=== PATIENT | female | born 1950 | race Caucasian/White ===

== ENCOUNTER 2021-12-18 16:06 | Outpatient (CLI) | payer MEDICARE, SELFPAY ==
[2021-12-18 11:36] LABS: Cholesterol* 201 mg/dL (90-199)
[2021-12-18 11:37] LABS: HDL Cholesterol* 59 mg/dL (>=50); LDL Cholesterol Calculated 103 mg/dL (<100); Triglycerides* 197 mg/dL (40-149)
== END 2021-12-18 16:07 | disposition home or self-care (01) ==
PROVIDERS: PCP Internal Medicine; Visit Provider Internal Medicine
DX: E78.5 Hyperlipidemia, unspecified (principal)
CPT/HCPCS: 80061

== ENCOUNTER 2022-05-02 09:03 | Outpatient (CLI) | payer MEDICARE, OTHER, SELFPAY ==
[2022-05-02 12:54] LABS: Cholesterol* 192 mg/dL (90-199); HDL Cholesterol* 64 mg/dL (>=50); LDL Cholesterol Calculated 94 mg/dL (<100); Triglycerides* 170 mg/dL (40-149)
== END 2022-05-02 09:04 | disposition home or self-care (01) ==
LOC: NFLDREF 09:20
PROVIDERS: PCP Internal Medicine; Visit Provider Internal Medicine
DX: E03.9 Hypothyroidism, unspecified (principal); E78.5 Hyperlipidemia, unspecified
CPT/HCPCS: 80061; 84443

== ENCOUNTER 2022-05-21 13:44 | Outpatient (CLI) | payer MEDICARE, OTHER, SELFPAY ==
--- NOTE | 2022-05-21 13:40 | CRLHL7_ITS ---
For Patients: As a result of the Century Cures Act, medical imaging exams and procedure reports are released immediately into your electronic medical record. You may view this report before your referring provider. If you have questions, please contact your health care provider. BILATERAL SCREENING MAMMOGRAM WITH COMPUTER-AIDED DETECTION AND TOMOSYNTHESIS TECHNIQUE: CC and MLO views were obtained. These mammographic images have been obtained using full-field digital technique. These mammographic images were interpreted with the benefit of computer-aided detection. Breast Tomosynthesis was used in this interpretation. COMPARISON FILM: 05/31/20; 04/01/19; 08/15/17. FINDINGS: The breasts are heterogeneously dense, which may obscure small masses IMPRESSION: There is no radiographic evidence for malignancy. ASSESSMENT: BI-RADS Category 2: Benign RECOMMENDATION: Routine screening mammogram in 1 year. A lay language report of this examination will be provided to the patient. Evan Jon M.D. Diagnostic Radiologist [email or web address] Transcribed: 2:40 pm DW/Dictated by: Evan Jon MD @ 05/22/2022 12:55:00 PM (Electronically Signed)
== END 2022-05-21 13:45 | disposition home or self-care (01) ==
PROVIDERS: PCP Internal Medicine; Visit Provider Internal Medicine
DX: Z12.31 Encounter for screening mammogram for malignant neoplasm of breast (principal); R92.2 Inconclusive mammogram
CPT/HCPCS: 77063; 77067

== ENCOUNTER 2022-05-23 13:26 | Outpatient (CLI) | payer MEDICARE, OTHER, SELFPAY ==
--- NOTE | 2022-05-23 13:30 | CRLHL7_ITS ---
For Patients: As a result of the Century Cures Act, medical imaging exams and procedure reports are released immediately into your electronic medical record. You may view this report before your referring provider. If you have questions, please contact your health care provider. DXA BONE MINERAL DENSITY STUDY, 05/23/2022 Reason for exam: Osteopenia. Current height (inches): 62.0 Weight (lbs.): 145.0 Menopause age: 50 Ethnicity: White 1. Have you had a previous hip or vertebral fracture? No. 2. Have you had any fractures during your adult life which did not result from significant trauma (e.g., auto accident)? No. 3. Did either of your parents have a hip fracture? No. 4. Do you smoke? No. 5. Have you ever taken Glucocorticoids? No. 6. Do you have rheumatoid arthritis? No. 7. Do you have secondary osteoporosis? No. 8. Do you drink 3 or more alcoholic drinks per day? No. 9. Are you being treated for osteoporosis? No. 10. Have you ever taken any of the following medications: Actonel, Evista, Fosamax, Miacalcin, Reclast, Boniva, Forteo, HRT (i.e., estrogen/hormone therapy), Protelos, Prolia, Vitamin D, Calcium, other ??? please specify. ANSWER: Yes; vitamin D and calcium. 11. Do you have any of the following medical conditions: Anorexia or bulimia, asthma or emphysema, end stage renal disease, hyperparathyroidism, any seizure disorders, cancer, inflammatory bowel diseases, hysterectomy, other ??? please specify. ANSWER: No. 12. What was your maximum height (inches)? 63.5. 13. Do you perform weightbearing exercise regularly? No. 14. Do you regularly consume dairy products? Yes. 15. Do you drink caffeinated beverages? Yes. 16. At what age did your period start? 13. 17. Are you premenopausal? No. 18. How many full-term pregnancies have you had? 3. 19. Have you ever missed your period for more than 6 months in a row (not including or menopause)? No. TECHNIQUE: Bone mineral density study was performed using the [employer]. FINDINGS: The results of the study expressed as bone mineral density (BMD) are as follows: Lumbar Spine L1 to L4: BMD: 0.835 g/cm2. T-score: -1.9. Z-score: 0.3. Neck Left: BMD: 0.659 g/cm2. T-score: -1.7. Z-score: 0.2. Right: BMD: 0.691 g/cm2. T-score: -1.4. Z-score: 0.5. Total Left: BMD: 0.785 g/cm2. T-score: -1.3. Z-score: 0.3. Right: BMD: 0.799 g/cm2. T-score: -1.2. Z-score: 0.4. IMPRESSION: Osteopenia. COMPARISON: Compared with scan of 07/10/2017, the bone mineral density has increased by 2.8% at the spine and decreased by 5.1% at the hip. *Comparison exams done prior to 09/2019 were performed on different unit, indidebt. FRAX 10-year Fracture Risk Major Osteoporotic Fracture: 11% Hip Fracture: 2.1% Reported Risk Factors: [place] () Neck BMD = 0.659, BMI = 26.5 EVAN LONG M.D. Diagnostic Radiologist [email or web address] Transcribed: 4:[address]/Dictated by: Evan Long MD @ 05/23/2022 2:56:00 PM (Electronically Signed)
== END 2022-05-23 13:27 | disposition home or self-care (01) ==
LOC: RAD 13:27
PROVIDERS: PCP Internal Medicine; Visit Provider Internal Medicine
DX: M85.88 Other specified disorders of bone density and structure, other site (principal)
CPT/HCPCS: 77080

== ENCOUNTER 2023-05-13 10:00 | Outpatient (CLI) | payer MEDICARE, OTHER, SELFPAY | END 2023-05-13 10:01 | disposition home or self-care (01) | LOC: NFLDREF 05-15 13:23 | PROVIDERS: PCP Internal Medicine; Referring Provider Internal Medicine; Visit Provider Internal Medicine | DX: E03.9 Hypothyroidism, unspecified (principal); E78.5 Hyperlipidemia, unspecified; M85.80 Other specified disorders of bone density and structure, unspecified site | CPT/HCPCS: 80061; 82306; 84443 ==

== ENCOUNTER 2023-06-24 10:29 | Outpatient (CLI) | payer MEDICARE, OTHER, SELFPAY ==
--- NOTE | 2023-06-24 10:15 | MM_ITS ---
Patient: RAFI CLARK Facility:?[facility] Patient ID:?[id number] Site Patient ID:?[id number]. Site :?[id number] Study:?XRay-Breast Bilateral 3D W/CAD-06/24/2023 11:09:55 AM Ordering Physician:Beata Arriola Final Report: BILATERAL SCREENING MAMMOGRAM WITH COMPUTER-AIDED DETECTION AND TOMOSYNTHESIS TECHNIQUE: CC and MLO views were obtained. These mammographic images have been obtained using full-field digital technique. These mammographic images were interpreted with the benefit of computer-aided detection. Breast Tomosynthesis was used in this interpretation. COMPARISON FILM: 05/21/22, 05/31/20, 04/01/19. FINDINGS: The breasts are heterogeneously dense, which may obscure small masses. IMPRESSION: There is no radiographic evidence for malignancy. ASSESSMENT: BI-RADS Category 2: Benign RECOMMENDATION: Routine screening mammogram in 1 year. A lay language report of this examination will be provided to the patient. Evan Jon M.D. Diagnostic Radiologist [email or web address] DSM/sp R& Transcribed: 6:55 p.m. SP/Dictated by: Evan Jon MD @ 06/24/2023 12:33:00 PM Signed by:?Evan Jon MD @06/25/2023 5:43:21 AM (Electronic Signature)
== END 2023-06-24 10:30 | disposition home or self-care (01) ==
LOC: MAMMO 10:32
PROVIDERS: PCP Internal Medicine; Visit Provider Internal Medicine
DX: Z12.31 Encounter for screening mammogram for malignant neoplasm of breast (principal); R92.2 Inconclusive mammogram
CPT/HCPCS: 77063; 77067

== ENCOUNTER 2024-03-05 08:24 | Outpatient (CLI) | payer MEDICARE, OTHER, SELFPAY ==
--- OUTSIDE RECORDS SUMMARY | 2024-03-05 08:27 | XMS_ITS | Clinical Summary ---
Author Organization [facility] Address [place], [place] [address] Care Team Providers Care Financial Services Counselor Name Role Phone Pcp, No Primary Care Provider Unavailabl e Allergies No known active allergies Medications Medication Sig Dispensed Refills Start Date End Date Status aspirin enteric coated 81 mg tabletIndications:M yalgia and myositis, unspecified Take 1 tablet by mouth once daily. DO NOT CRUSH OR CHEW. 0 10/03/2009 Active ergocalciferol (VITAMIN D) 50,000 unit capsuleIndications: Vitamin D deficiency Take 1 capsule by mouth. Take one tablet twice weekly 24 capsule 3 10/09/2010 Active cyclobenzaprine (FLEXERIL) 10 mg tabletIndications:M yalgia and myositis, unspecified Take 1 tablet by mouth. daily 90 tablet 3 11/19/2010 Active EFFEXOR XR 75 mg [id number]:Dys thymic disorder Take 3 capsules by mouth. daily 270 capsule 3 11/19/2010 Active levothyroxine (SYNTHROID) 50 mcg tablet Take 1 tablet by mouth once daily. Best if taken on empty stomach. 90 tablet 3 11/19/2010 Active traMADol (ULTRAM) 50 mg tabletIndications:D isorder of bone and cartilage, unspecified Take 1 tablet by mouth every 6 hours if needed for Pain. MAXIMUM DAILY DOSE = 400MG 90 tablet 3 11/19/2010 Active traZODone (DESYREL) 50 mg tabletIndications:D epressive disorder, not elsewhere classified Take 1-2 tablets by mouth at bedtime if needed for Sleep. Take after food or snack. 90 tablet 3 11/19/2010 Active medication order composerIndications :Medical cannabis use,Fibromyalgia Certified for [place] medical cannabis 0 10/12/2021 Active polyethylene glycol-electrolyte (GOLYTELY) 236-22.74-6.74 -5.86 gram suspensionIndicatio ns:Encounter for screening colonoscopy Drink 2 liters the day before the procedure and 2 liters 6 hours prior to procedure, 4000 mL 02/27/2024 Active Active Problems Problem Noted Date Diagnosed Date Colon polyp 10/25/2010 Overview (10/20/2013): Colonoscopy 10/2010 polyp repeat in 3 years Colonoscopy 10/2013 normal repeat in 5 years Vitamin D deficiency 10/02/2010 Hypothyroid 10/01/2010 Knee pain 10/01/2010 Mixed hyperlipidemia 12/17/2007 Myalgia and myositis, unspecified 09/30/2006 Dysthymic disorder 09/30/2006 Disorder of bone and cartilage, unspecified 09/19 Resolved Problems Problem Noted Date Diagnosed Date Resolved Date 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 Encounters Date Type Department Care Team Description 03/04/2024 Refill [facility] [address] [place] [address] Lincoln Ley MD Refill Request (Gavilyte-g) 02/25/2024 Telephone [facility] [address] [place] [address] Lincoln Ley MD Appointment (Colonoscopy at [facility] 03/05/24); Error-please disregard from Last 3 Months Immunizations Name Administration Dates Next Due Influenza, IIV3 (Age >=3 years) 03/26/2002 Td (Age >=7 Years) 09/26/2001 Tdap 11/18/2012 Family History Medical History Relation Name Comments Psychiatric illness Father Cancer-breast Maternal Aunt Other Maternal Uncle aneurysm Diabetes Mother Cancer Sister glioblastoma of cerebrum at age 54 Relation Name Status Comments Father Maternal Aunt Maternal Uncle Mother Sister Social History Tobacco Use Types Packs/Day Years Used Date Smoking Tobacco: Former Cigarettes 0.5 2 0 04/21/1981 - 04/21/1983 Smokeless Tobacco: Never Tobacco Cessation:Counseling Given: Yes Alcohol Use Standard Drinks/Week Comments No 0 (1 standard drink = 0.6 oz pur e alcohol) Social Connections Answer Date Recorded Frequency of Communication with Friends and Fami ly Not on file 10/19/2022 Financial Resource Strain Answer Date R ecorded Difficulty of Paying Living Expenses 2 10/12/2021 Difficulty of Paying Living Expenses 1 10/12/2021 Food Insecurity Answer Date Recorded Worried About Running Out of Food in the Last Ye ar 1 10/12/2021 Transportation Needs Answer Date Record ed Lack of Transportation (Medical) 1 10/12/2021 Housing Stability Answer Date Recorded Unable to Pay for Housing in the Last Year 1 10/12/2021 Sex and Gender Information Value Date Recorded Sex Assigned at Not on file Gender Identity Not on file Sexual Orientation Not on file Obstetrics History Para Term AB IAB SAB Ectopic Multiple Livin g Live Births 3 3 Date Outcome GA Total Labor Labor/2nd/3rd Weight Sex Type Anes PTL Latoya A1 A5 Name Clin Last Filed Vital Signs Vital Sign Reading Time Taken Comments Blood Pressure 110/70 10/12/2021 3:22 PM CDT Pulse 92 10/12/2021 3:22 PM CDT Temperature 36.8 ??C (98.2 ??F) 10/29/2013 9:39 AM CD T Respiratory Rate - - Oxygen Saturation 95% 10/29/2013 9:39 AM CDT Inhaled Oxygen Concentration - - Weight 68.2 kg (150 lb 6.4 oz) 10/12/2021 3:22 P M CDT Height 158.8 cm (5' 2.5) 01/28/2011 9:41 AM CDT Body Mass Index - - Plan of Treatment Upcoming Encounters Date Type Department Care Team (Late st Contact Info) Description 03/05/2024 8:30 AM UNATTENDED GROUND SENSOR SPECIALIST Procedure Only [facility] [address] [place] [address] Lincoln Ley MD [facility] [place] [address] Arrived Health Maintenance Due Date Last Done Comments Depression screening for age 12+ 1962 BMI (ht and wt on same day) for age 18+ 1968 Hepatitis C screening for ag e 18-79 1968 Zoster (shingles) series for age 50+ (1 of 2) 2000 Mammogram for age 45-75 10/13/2012 10/14/19 12, 10/01/2010, 10/03/2009, Additional history exists DEXA/DXA scan for age 65+ 2015 10/04/2010, 10/2007 Medicare Wellness for age 65+ 2015 Pneumococcal series for age 65+ (1 of 1 - PCV) 2015 Lipids for age 45-75 10/05/2015 10/04/2010, 03/28/2009, 12/27/2008, Additional history exists Tetanus booster 11/18/2022 11/18/2012 (Comp leted outside of [facility]), 11/18/2012, 09/26/2001 COVID-19 vaccine series ( season) 2023 02/14/2023, 03/11/2022, 10/24/2021, Additional history exists Influenza for age 65+ 12/21/2023 03/26/2002 Colonoscopy through age 75 03/05/202903/05, 10/20/2013, 10/20/2013, Additional history exists Tdap Completed 11/18/2012 (Comp leted outside of [facility]), 11/18/2012 Procedures Procedure Name Priority Date/Time Associated Diagnosis Comments COLONOSCOPY SCREENING Routine 03/05/2024 7:22 AM UNATTENDED GROUND SENSOR SPECIALIST Encounter for screening colonoscopy SCAN-MAMMOGRAPHY REPORT 10/14/2011 12:00 AM CDT XR DXA BONE DENSITY 2 SITES AXIAL Routine 10/04/2010 8:35 AM CDT Osteoporosis screening LIPID PANEL Routine 10/04/2010 8:01 AM CDT Mixed hyperlipidemia from Last 3 Months or Most Recently Relevant to Health Maintenance Results * SCAN-MAMMOGRAPHY REPORT (10/14/2011 12:00 AM CDT) Anatomical Region Laterality Modality Other Narrative Transcriptions Scanner - 10/14/2011 12:00 AM CDT Scanner OTHER * XR DEXA BONE DENSITY 2 SITES (10/04/2010 8:35 AM CDT) Anatomical Region Laterality Modality Spine, HIPS, HIPL, HIPR Other Narrative 10/18/2010 7:07 PM CDT Please see scanned document for results of this study. Procedure Note Opal Vasquez - 10/18/2010 Please see scanned document for results of this study. Opal Vasquez MACHINE GUN MECHANIC DEXA * (ABNORMAL) LIPID PANEL (10/04/2010 8:01 AM CDT) CHOLESTEROL,TOTAL 226(H) 110 - 199 mg/dL [facility] TRIGLYCERIDES 231(H) <150 mg/dL [facility] HDL CHOLESTEROL 44 >40 mg/dL [facility] CHOL/HDL RATIO 5.14(H) <4.51 [facility] LDL CHOLESTEROL 136(H) <131 mg/dL [facility] PATIENT STATUS Fasting [facility] Blood specimen (specimen) BLOOD SPECIMEN / Unknown 10/04/2010 8:01 AM CDT 10/04/2010 7:52 AM CDT Opal Vasquez NP CHEMISTRY [facility] [address] [place] [address] from Last 3 Months or Most Recently Relevant to Health Maintenance Care Teams Financial Services Counselor Relationship Specialty Start Date End Date Pcp, No . PCP - General 05/25/14
--- NOTE | 2024-03-05 09:57 | W.ANESCHARGE ---
Anesthesia Charges Start Date/Time Anesthesia Start Date: 03/05/24 Anesthesia Start Time: 09:28 Stop Date/Time Anesthesia Stop Date: 03/05/24 Anesthesia Stop Time: 09:55
--- NOTE | 2024-03-05 10:21 | W.ANESCHARGE ---
Anesthesia Charges Start Date/Time Anesthesia Start Date: 03/05/24 Anesthesia Start Time: 09:28 Stop Date/Time Anesthesia Stop Date: 03/05/24 Anesthesia Stop Time: 09:55 Summary Extremes of Age - Over 70 or under 1: MDA
== END 2024-03-05 08:25 | disposition home or self-care (01) ==
LOC: OP CLINIC 08:25
PROVIDERS: PCP Internal Medicine; Visit Provider Internal Medicine Gastroenterology
DX: Z12.11 Encounter for screening for malignant neoplasm of colon (principal); K57.30 Diverticulosis of large intestine without perforation or abscess without bleeding; Z86.0101 Personal history of adenomatous and serrated colon polyps
CPT/HCPCS: 00812; 45378; 99100; J2704

== ENCOUNTER 2024-05-27 15:11 | Outpatient (CLI) | payer MEDICARE, OTHER, SELFPAY | END 2024-05-27 15:12 | disposition home or self-care (01) | PROVIDERS: PCP Internal Medicine; Visit Provider Internal Medicine | DX: E78.5 Hyperlipidemia, unspecified (principal); E03.9 Hypothyroidism, unspecified; R73.03 Prediabetes; F41.9 Anxiety disorder, unspecified; M85.80 Other specified disorders of bone density and structure, unspecified site | CPT/HCPCS: 80048; 80061; 82306; 84443 ==

== ENCOUNTER 2024-06-08 14:22 | Outpatient (CLI) | payer MEDICARE, OTHER, SELFPAY ==
[2024-06-11 04:33] LABS: HPV Source Cervical; HPV, High Risk by TMA Not Detected
== END 2024-06-08 14:23 | disposition home or self-care (01) ==
PROVIDERS: PCP Internal Medicine; Visit Provider Obstetrics & Gynecology
DX: Z12.4 Encounter for screening for malignant neoplasm of cervix (principal); Z11.51 Encounter for screening for human papillomavirus (HPV)
CPT/HCPCS: 87624; 87625; 88141; 88142

== ENCOUNTER 2024-06-23 17:49 | Outpatient (CLI) | payer MEDICARE, OTHER, SELFPAY | END 2024-06-23 17:50 | disposition home or self-care (01) | PROVIDERS: PCP Internal Medicine; Visit Provider Orthopaedic Surgery | DX: M25.511 Pain in right shoulder (principal); M75.101 Unspecified rotator cuff tear or rupture of right shoulder, not specified as traumatic; M19.011 Primary osteoarthritis, right shoulder; M19.211 Secondary osteoarthritis, right shoulder; M25.411 Effusion, right shoulder; M75.51 Bursitis of right shoulder | CPT/HCPCS: 73221 ==

== ENCOUNTER 2024-08-17 09:41 | Outpatient (CLI) | payer MEDICARE, OTHER, SELFPAY ==
--- NOTE | 2024-08-17 09:45 | CRLHL7_ITS ---
For Patients: As a result of the Century Cures Act, medical imaging exams and procedure reports are released immediately into your electronic medical record. You may view this report before your referring provider. If you have questions, please contact your health care provider. INDICATION: SCREENING MAMMOGRAM, ASYMPTOMATIC 74 Y/O FEMALE COMPARISON: 06/24/23, 05/21/22, 05/31/21 TECHNIQUE: CC and MLO views were obtained. These mammographic images have been obtained using full-field digital technique. These mammographic images were interpreted with the benefit of computer aided detection and tomosynthesis. BREAST COMPOSITION: The breasts are heterogeneously dense, which may obscure small masses. FINDINGS: No suspicious findings. ASSESSMENT: BI-RADS 2 Benign RECOMMENDATION: Annual screening mammogram. A lay language report of this examination will be provided to the patient. Dictated by: Evan Jon MD @ 08/26/2024 10:24:07 (Electronically Signed)
== END 2024-08-17 09:42 | disposition home or self-care (01) ==
LOC: MAMMO 09:41
PROVIDERS: PCP Internal Medicine; Visit Provider Internal Medicine
DX: Z12.31 Encounter for screening mammogram for malignant neoplasm of breast (principal); R92.333 Mammographic heterogeneous density, bilateral breasts
CPT/HCPCS: 77063; 77067